=== PATIENT | female | born 1980 | race Caucasian/White ===

== ENCOUNTER 2025-01-03 09:56 | Emergency (ER) | payer BC, SELFPAY ==
[2025-01-03 10:07] VITALS: BP 126/63; PULSE 89; RESP 16; TEMP 36.4; O2SAT 100
--- NOTE | 2025-01-03 10:21 | ED_ITS ---
HPI - URI/Sore Throat General Chief Complaint: Upper Respiratory Infection Stated Complaint: Sinus Time Seen by Provider: 01/03/25 10:21 Source: patient Mode of arrival: ambulatory Limitations: no limitations History of Present Illness HPI Narrative: 44-year-old female presents with complaint of left-sided sinus pain and pressure for 2-3 weeks. Patient also reports bad tooth to left lower mouth. States she had a crown that fell off. Afebrile. Taking Zyrtec And Mucinex x1 week with no relief. all systems reviewed and negative except as noted above. Related Data Home Medications ?Medication ?Instructions ?Recorded ?Confirmed ?Last Taken ?Type clonazepam 0.5 mg tablet mg 01/03/25 Unknown History dextroamphetamine-amphetamine 20 01/03/25 Unknown Hi story mg tablet spironolactone 100 mg tablet mg 01/03/25 Unknown Hist ory venlafaxine 150 mg mg PO 01/03/25 Unknown Hist ory capsule,extended release 24 hr Allergies Allergy/AdvReac Type Severity Reaction Status Date / Time No Known Allergies Allergy Unknown Verified 01/03/25 10:15 PMFSH Comments At time of signature, agree with nursing past medical, surgical, social and family history. There is no relevant family history pertinent to the presenting complaint. Exam Narrative: GENERAL: This is a well-nourished, well-developed patient, in no apparent d istress. HEAD: normocephalic, atraumatic. EYES: PERRL. Sclera clear/white. Vision is grossly intact. EARS: External ears normal, auditory canals clear and without drainage, TMs normal without perforation. Hearing grossly intact. NOSE: External nose normal withErythema and swelling to left [place]. Left maxillary sinus tenderness on palpation. THROAT: Mucous membranes moist, Mild erythema clear postnasal drainage MOUTH: tooth # 17 decayed with surrounding swelling and erythema NECK: Neck supple, non-tender without lymphadenopathy, masses or thyromegaly. CARDIOVASCULAR: Regular rate and rhythm without murmurs, gallops, or rubs. RESPIRATORY: Clear to auscultation. Breath sounds equal bilaterally. No wheezes, rales, or rhonchi. SKIN: warm, Dry, intact with no suspicious lesions or rash, good texture and turgor. NEURO: awake, alert, and oriented to person, place and time. There were no obvious focal neurologic abnormalities. EXTREMITIES: No joint tenderness, effusion, or edema noted. Course Course Level of Care: Express Care Visit Vital Signs Vital signs: Vital Signs Temperature 36.4 C L 01/03/25 10:07 Pulse Rate 89 01/03/25 10:07 Respiratory Rate 16 01/03/25 10:07 Blood Pressure 126/63 01/03/25 10:07 Pulse Oximetry 100 01/03/25 10:07 Oxygen Delivery Room Air 01/03/25 10:07 Temperature 36.4 C L 01/03/25 10:07 Pulse Rate 89 01/03/25 10:07 Respiratory Rate 16 01/03/25 10:07 Blood Pressure 126/63 01/03/25 10:07 Pulse Oximetry 100 01/03/25 10:07 Oxygen Delivery Room Air 01/03/25 10:07 reviewed MDM - URI/Sore Throat MDM Narrative Medical decision making narrative: will treat bacterial sinusitis and dental infection with Augmentin. Recommend continuing Zyrtec. Will follow up with dentist at next available appointment. Differential Diagnosis Differential diagnosis: Likely upper respiratory infection, sinusitis and viral infection Discharge Plan Discharge Clinical Impression: Acute bacterial sinusitis, Dental infection Patient Disposition: Home Condition: Stable Instructions: Antibiotic Form, Toothache (ED) Additional Instructions: Take medications as prescribed. Take Tylenol or ibuprofen every 6 hours as needed for pain. Continue Zyrtec daily. Follow-up with a dentist at next available appointment. Patient Language: Japanese Prescriptions: New methylprednisolone [Medrol (Joao)] 4 mg tablets,dose pack See Rx Instructions PO .COMPLEX Qty: 21 0RF Rx Instructions: orally per package directions amoxicillin-pot clavulanate 875-125 mg tablet 1 tablet PO Q12H 10 Days Qty: 20 0RF No Action clonazepam 0.5 mg tablet spironolactone 100 mg tablet venlafaxine 150 mg capsule,extended release 24hr PO dextroamphetamine-amphetamine 20 mg tablet Follow-up/Referrals: Chava Vigil MD [Primary Care Provider, [facility]] Time of Disposition: 10:29
== END 2025-01-03 10:35 | disposition home or self-care (01) ==
PROVIDERS: Emergency Provider Nurse Practitioner Family; PCP Emergency Medicine
DX: J01.90 Acute sinusitis, unspecified (principal); K04.7 Periapical abscess without sinus; F90.9 Attention-deficit hyperactivity disorder, unspecified type; F32.A Depression, unspecified
CPT/HCPCS: 99203; G0463